=== PATIENT | male | born 1945 | race Caucasian/White ===

== ENCOUNTER → 2019-07-01 | Outpatient (REF) | LOC: COL.CARD 14:23 | DX: Z01.818 Encounter for other preprocedural examination (principal) ==

== ENCOUNTER → 2019-09-22 | Outpatient (REF) | LOC: COL.CARD 14:44 | DX: I49.3 Ventricular premature depolarization (principal); I49.1 Atrial premature depolarization; I49.8 Other specified cardiac arrhythmias ==

== ENCOUNTER → 2020-03-12 | Outpatient (REF) | LOC: COL.CARD 14:03 | DX: Z01.810 Encounter for preprocedural cardiovascular examination (principal) ==

== ENCOUNTER 2022-09-02 14:37 | Observation (INO) | payer MEDICARE, BC ==
[~2022-09-02] VITALS: Ht 180.3 cm; Wt 103.2 kg
[2022-09-02 15:25] VITALS: BP 171/67; PULSE 42; TEMP 97.7
[2022-09-02] MEDS ORDERED: ARICEPT10 MG PO (15:32)
[2022-09-02] MEDS ORDERED: FLOMAX 0.40.4 MG/CAP PO (15:32)
[2022-09-02] MEDS ORDERED: MULTI VITAMINS1 TAB PO (15:33)
[2022-09-02] MEDS ORDERED: PRILOTC PO (15:33)
[2022-09-02] MEDS ORDERED: VITAMINC1000TA PO (15:34)
[2022-09-02] MEDS ORDERED: TYLENOL 500MG500 MG PO (15:35)
[2022-09-02] MEDS ORDERED: LIPITOR 40MG TA40 MG PO (15:36)
[2022-09-02] MEDS ORDERED: PREVAGEN PO (15:51)
--- NOTE | 2022-09-02 15:52 | NUR ---
Pt to room 353 on medical floor, oriented to room & call light system. Pt is A&Ox4, although states he has a hx of alzheimers. HR bradycardic - 40s, states 40s is his "normal." Admits to having sharp chest pain & increases on inhalation. LCTA. BSx4. Rad/ped pulses noted, strong. INT in L AC patent, no edema or redness. notified of pts arrival. Call light within reach.
[2022-09-02 16:20] VITALS: BP_SYST 171
--- NOTE | 2022-09-02 16:29 | NUR ---
THIS RN REVIEWED AND AGREES WITH ADMISSION INTAKE AND ASSESSMENT COMPLETED BY JOSE ROBERTO HERNANDEZ.
--- NOTE | 2022-09-02 16:30 | NUR ---
Pts BP 171/67, aware. Will continue to trend.
--- NOTE | 2022-09-02 17:16 | NUR ---
Critical troponin of 0.255 called to .
--- NOTE | 2022-09-02 18:53 | NUR ---
Pt off medical floor for imaging.
[2022-09-02 18:58] LABS: PARTIAL THROMBOPLASTIN TIME 36.3 SECONDS (26.0-37.0)
--- NOTE | 2022-09-02 20:04 | NUR ---
Patient assessed at this time. Alert and oriented, and able to make needs known. Reports pain is better, rated as a [address] Lock at bedside discussing plan with patient and daughter. Started on Heparin drip per orders. Voices no questions, needs, or concerns at this time. In bed with call light within reach.
[2022-09-02 20:13] VITALS: BP 172/73; PULSE 44; TEMP 98.2
[2022-09-02 21:06] VITALS: BP_SYST 172
--- NOTE | 2022-09-02 21:08 | NUR ---
AROUND 1930 PT'S NURSE CALLED TELE DESK AND NOTIFIED SPEECH AND LANGUAGE SPECIALIST THAT WE DO NOT NEED TO CALL UNTIL HR SUSTAINS BELOW HR OF 35. TELE WILL KEEP AN EYE ON IT.
--- NOTE | 2022-09-02 22:14 | NUR ---
CALLED NURSE ABOUT HR GOING TO 33. NURSE CALLED BACK AND SAID TO CHANGE THE LOW PARAMETER TO 30.
--- NOTE | 2022-09-02 23:43 | NUR ---
NOTIFIED NURSE ABOUT PT HAVING A 5 RUN OF PVC'S AND HR IS DROPPING TO 31 BUT DOES GO BACK UP TO HR OF 35.
[2022-09-02 23:51] VITALS: BP 150/73; PULSE 31; TEMP 97.8
[2022-09-03] VITALS (7 sets, daily range): BP systolic 134–170; BP diastolic 51–64; PULSE 34–43; TEMP 97.3–97.5
--- NOTE | 2022-09-03 05:45 | NUR ---
Continues on Heparin drip and IV fluids per orders. Has denied having pain and discomfort this shift. Voices no questions, needs, or concerns at this time. In bed with call light within reach.
[2022-09-03 09:28] LABS: BASO % 0.6 % (0.0-2.0); EOS # 0.1 K/mm3 (0.0-0.7); EOS % 1.8 % (0.0-4.0); GRAN % 65.2 % (42.2-75.2); HEMATOCRIT 41.2 % (42.0-52.0); HEMOGLOBIN 14.2 g/dl (13.5-18.0); LYMPH # 1.4 K/mm3 (1.2-3.4); LYMPH % 22.3 % (20.0-51.0); MEAN CELL VOLUME 92 fl (80.0-100.0); MEAN CORPUSCULAR HEMOGLOBIN 32 pg (27-31); MEAN CORPUSCULAR HGB CONC 35 g/dl (33.0-37.0); MEAN PLATELET VOLUME 11.2 fl (7.4-10.4); MONO # 0.6 K/mm3 (0.1-0.6); MONO % 9.8 % (1.7-9.3); PLATELET COUNT 182 K/mm3 (130-400); RED BLOOD COUNT 4.48 M/mm3 (4.20-5.60); REDCELL DISTRIBUTION WIDTH-CV 13.5 % (11.5-14.5)
[2022-09-03] MEDS ORDERED: IMDUR 60MG60 MG/TAB PO (09:32)
[2022-09-03] MEDS ORDERED: ASPIRIN E.C. 8181 MG PO (09:32)
[2022-09-03 09:46] LABS: ALBUMIN 3.8 gm/dL (3.4-4.8); BILIRUBIN,TOTAL 0.8 mg/dL (0.2-1.2); CALCIUM 9.1 mg/dL (8.4-10.2); CREATININE, serum 0.92 mg/dL (0.72-1.25); POTASSIUM 4.3 mmol/L (3.5-4.5); TOTAL PROTEIN 6.6 gm/dL (6.2-8.1)
--- NOTE | 2022-09-03 10:02 | NUR ---
SW met with pt for intake. Spouse Linda (also NOK) was present and confirmed phone number as [phone] and daughter Leti was present as well. Pt confirmed living in [place] with spouse. Pt reported Dr Maloney is PCP and uses [facility] as pharmacy and denies any issues. Pt denies any DME or O2 but reports using CPAP at night. Pt reports DPOA on file with PCP and will have family bring up if needed. Pt denies any other issues and/or needs. DC plan Home with spouse
--- NOTE | 2022-09-03 15:09 | NUR ---
Initial visit; Patient and his thanked Fire Prevention Chief for looking in on him and offering God's blessings. Patient states he should be going home today and has been treated well here.
== END 2022-09-03 15:45 | disposition home or self-care (01) ==
LOC: MEDICAL 14:37
PROVIDERS: Nurse Practitioner; ADMIT Hospitalist
DX: R07.89 Other chest pain (principal); M54.9 Dorsalgia, unspecified; I21.4 Non-ST elevation (NSTEMI) myocardial infarction; R00.1 Bradycardia, unspecified; R03.0 Elevated blood-pressure reading, without diagnosis of hypertension; E78.5 Hyperlipidemia, unspecified; G89.29 Other chronic pain; N40.0 Benign prostatic hyperplasia without lower urinary tract symptoms; G30.9 Alzheimer's disease, unspecified; Z79.899 Other long term (current) drug therapy; Z87.891 Personal history of nicotine dependence; Z98.890 Other specified postprocedural states
CPT/HCPCS: G0378; G0379; J1644; J7030; Q9967